=== PATIENT | female | born 1945 | race Asian ===

== ENCOUNTER 2017-05-30 08:16 | Outpatient (CLI) | payer OTHER, MEDICAID | END 2017-05-30 19:43 | disposition home or self-care (01) | LOC: SUS 08:16 | PROVIDERS: ATTEND Internal Medicine | DX: R10.9 Unspecified abdominal pain (principal); M47.899 Other spondylosis, site unspecified | CPT/HCPCS: 74000-TC; 76700-TC ==

== ENCOUNTER 2017-12-05 13:12 | Outpatient (CLI) | payer OTHER, MEDICAID | END 2017-12-05 20:58 | disposition home or self-care (01) | LOC: SRD 13:12 | PROVIDERS: ATTEND Internal Medicine | DX: M47.896 Other spondylosis, lumbar region (principal); M41.86 Other forms of scoliosis, lumbar region; G95.19 Other vascular myelopathies | CPT/HCPCS: 72110 ==

== ENCOUNTER 2017-12-31 14:23 | Outpatient (CLI) | payer OTHER, MEDICAID | END 2017-12-31 19:47 | disposition home or self-care (01) | LOC: SMA 14:23 | PROVIDERS: ATTEND Internal Medicine | DX: Z12.31 Encounter for screening mammogram for malignant neoplasm of breast (principal) | CPT/HCPCS: 77067 ==

== ENCOUNTER 2019-03-24 13:55 | Outpatient (CLI) | payer OTHER, MEDICAID | END 2019-03-24 21:13 | disposition home or self-care (01) | LOC: SMA 13:55 | PROVIDERS: ATTEND Internal Medicine | DX: Z12.31 Encounter for screening mammogram for malignant neoplasm of breast (principal) | CPT/HCPCS: 77067 ==

== ENCOUNTER 2020-06-21 11:23 | Outpatient (CLI) | payer OTHER, MEDICAID | END 2020-06-21 20:14 | disposition home or self-care (01) | LOC: SMA 11:23 | PROVIDERS: ATTEND Internal Medicine | DX: Z12.31 Encounter for screening mammogram for malignant neoplasm of breast (principal); N64.89 Other specified disorders of breast | CPT/HCPCS: 77067 ==